=== PATIENT | male | born 1930 | race Caucasian/White ===

== ENCOUNTER 2017-10-03 10:21 | Emergency (ER) | payer OTHER, MEDICAID ==
--- NOTE | 2017-10-03 10:56 | CPEKG ---
Heart Rate: 84 RR Interval: 714 P-R Interval: 240 QRSD Interval: 108 QT Interval: 392 QTC Interval: 464 P [place]: 44 QRS [place]: -76 T Wave [place]: 54 EKG Severity - ABNORMAL ECG - EKG Impression: SINUS RHYTHM EKG Impression: FIRST DEGREE AV BLOCK EKG Impression: LEFT ANTERIOR FASCICULAR BLOCK Electronically Signed By: Brandy Vázquez 03-Oct-2017 20:04:28
[2017-10-03 11:29] LABS: % IMMATURE GRANULYOCYTES 0.4 % (0.0-1.1); ABSOLUTE IMMATURE GRANULOCYTES 0.02 10^3/uL (0.00-0.10); ADD DIFF? NO; ADD MORPH? NO; ADD SCAN? NO; ATYPICAL LYMPHOCYTE FLAG 0 (0-99); FRAGMENT RBC FLAG 0 (0-99); HEMATOCRIT 38.1 % (40.0-51.0); HEMOGLOBIN 13.7 g/dL (13.7-17.5); LEFT SHIFT FLG 0 (0-99); LIPEMIA HEMOLYSIS FLAG 90 (0-99); MEAN CELL HEMOGLOBIN 33.2 pg (27.9-34.1); MEAN CELL VOLUME 92.3 fL (81.5-99.8); MEAN PLATELET VOLUME 11.1 fL (8.7-11.7); PLATELET CLUMPS FLAG 0 (0-99); PLATELET COUNT 192 10^3/uL (150-400); RED BLOOD CELL COUNT 4.13 10^6/uL (4.40-6.38); RED CELL DISTRIBUTION WIDTH 12.7 % (11.5-15.2)
[2017-10-03 11:34] LABS: ANION GAP 13 mEq/L (8-16); CALCIUM 9.4 mg/dL (8.5-10.4); CARBON DIOXIDE 24 mEq/l (22-31); CHLORIDE 104 mEq/L (97-110); GLOMERULAR FILTRATION RATE > 60; GLUCOSE 96 mg/dL (70-100); POTASSIUM 3.8 mEq/L (3.5-5.2); SODIUM 141 mEq/L (134-144)
[2017-10-03 11:49] LABS: TROPONIN I < 0.012 ng/mL (0.000-0.034)
[2017-10-03 12:37] VITALS: RESP 18; TEMP 98.4
--- NOTE | 2017-10-03 12:56 | EDPHY ---
H & P Time Seen by Provider: 10/03/17 12:24 HPI/ROS: CHIEF COMPLAINT: High blood pressure HISTORY OF PRESENT ILLNESS: Patient is an 87-year-old male with a history of hypertension and coronary artery disease with 2 stents who presents to the emergency department with fluctuating blood pressure. Patient states that sometimes his systolic pressure is 110, and sometimes it he bounces up to 180. The patient states he was concerned because of the wide range of blood pressures. He has no chest pain or shortness of breath. He states when his blood pressure goes very high he sometimes feels foggy. He has no headache or focal deficits at this time. No nausea or vomiting. REVIEW OF SYSTEMS: My complete review of systems is negative except as mentioned in the HPI. Past Medical/Surgical History: Includes ACS, hypertension, prostate cancer, coronary artery disease Past surgical history: Includes 2 stents Social history: The patient does not smoke. Smoking Status: Never smoked Physical Exam: Vitals noted. In triage 171/84. When I saw the patient 132/76. GENERAL: Well-appearing, in no acute distress, alert. HEENT: Eyes normal to inspection, normal pharynx, no signs of dehydration. NECK: No thyromegaly, no lymphadenopathy, supple. RESPIRATORY: Clear to auscultation bilaterally, no rales, rhonchi or wheezing. CVS: Regular rate and rhythm, no rubs, murmurs, or gallops. ABDOMEN: Soft, nontender, nondistended, no organomegaly. BACK: Normal to inspection, no CVA tenderness. SKIN: Normal color, no rash, warm, dry. No pallor. EXTREMITIES: No pedal edema, no calf tenderness, no Homans sign or cords, no joint swelling. NEURO/PSYCH: Alert and oriented x3, normal mood and affect, normal motor sensory exam. No obvious cranial nerve deficit. Constitutional: Initial Vital Signs Temperature (C) 36.6 C 10/03/17 10:32 Heart Rate 81 10/03/17 10:32 Respiratory Rate 17 10/03/17 10:32 Blood Pressure 171/84 H 10/03/17 10:32 O2 Sat (%) 96 10/03/17 10:32 O2 Delivery Mode Room Air Allergies/Adverse Reactions: No Known Allergies Allergy (Unverified 05/18/13 05:42) Home Medications: Medication Instructions Recorded Aspirin [Aspirin 81mg (OTC)] 81 mg PO DAILY 05/18/13 Atorvastatin Calcium [Lipitor 20 20 mg PO DAILY 05/18/13 mg (RX)] Carvedilol 12.5 mg PO BID 05/18/13 Cholecalciferol Vit D3 [Vitamin D3 1,000 units PO DAILY 05/18/13 1000 units (OTC)] Diclofenac Sodium 1% [Voltaren Gel 1 earnest TP DAILY 05/18/13 (RX)] Hydrocodone Bit/Acetaminophen 1 each PO HS 05/18/13 [Hydrocodon-Acetaminophen 5-300] LORazepam [Ativan 1 mg (RX)] 1 mg PO TID 05/18/13 M D Recon 05/1805/18/13 Nitroglycerin [Nitrostat 0.4 mg 0.4 mg SL PRN PRN 05/18/13 (RX)] Olmesartan Medoxomil [Benicar 5 mg 10 mg PO DAILY 05/18/13 (RX)] [place]-3 Fatty Acids [Fish Oil 1000 1,000 mg PO DAILY 05/18/13 mg (OTC)] Pharmacy Completed 05/18/13 05/18/13 Medical Decision Making ED Course/Re-evaluation: In the emergency department I discussed possible etiologies with the patient. I answered all his questions. Laboratory studies were ordered from triage. The patient had a normal CBC and chemistry. Troponin was negative. My cell the patient had no complaints. I discussed his blood pressure medication. He has an appointment to see Dr. Tellez from Cardiology. I recommended he follow up with Dr. Tellez to see if his medications need to be adjusted. He will track his blood pressure and bring this to Dr. Tellez. He was given warnings prior to leaving. Differential Diagnosis: My differential includes but is not limited to hypertension, hypertensive emergency, hypertensive urgency, CVA, renal disease, ACS, acute CT - Data Points Laboratory Results: Laboratory Results 10/03/17 11:10 10/03/17 11:10 10/03/17 10/03/17 10/03/17 11:11 11:10 11:10 WBC 5.15 10^3/uL 10^3/uL (3.80-9.50) RBC 4.13 10^6/uL L 10^6/uL (4.40-6.38) Hgb 13.7 g/dL g/dL (13.7-17.5) Hct 38.1 % L % (40.0-51.0) MCV 92.3 fL fL (81.5-99.8) MCH 33.2 pg pg (27.9-34.1) MCHC 36.0 g/dL g/dL (32.4-36.7) RDW 12.7 % % (11.5-15.2) Plt Count 192 10^3/uL 10^3/uL (150-400) MPV 11.1 fL fL (8.7-11.7) Neut % (Auto) 54.7 % % (39.3-74.2) Lymph % (Auto) 28.7 % % (15.0-45.0) [place] % (Auto) 14.8 % H % (4.5-13.0) Eos % (Auto) 0.6 % % (0.6-7.6) Baso % (Auto) 0.8 % % (0.3-1.7) Nucleat RBC Rel Count 0.0 % % (0.0-0.2) Absolute Neuts (auto) 2.82 10^3/uL 10^3/uL (1.70-6.50) Absolute Lymphs (auto) 1.48 10^3/uL 10^3/uL (1.00-3.00) Absolute Monos (auto) 0.76 10^3/uL 10^3/uL (0.30-0.80) Absolute Eos (auto) 0.03 10^3/uL 10^3/uL (0.03-0.40) Absolute Basos (auto) 0.04 10^3/uL 10^3/uL (0.02-0.10) Absolute Nucleated RBC 0.00 10^3/uL 10^3/uL (0-0.01) Immature Gran % 0.4 % % (0.0-1.1) Immature Gran # 0.02 10^3/uL 10^3/uL (0.00-0.10) Sodium 141 mEq/L mEq/L (134-144) Potassium 3.8 mEq/L mEq/L (3.5-5.2) Chloride 104 mEq/L mEq/L (97-110) Carbon Dioxide 24 mEq/l mEq/l (22-31) Anion Gap 13 mEq/L mEq/L (8-16) BUN 17 mg/dL mg/dL (7-23) Creatinine 1.0 mg/dL mg/dL (0.7-1.3) Estimated GFR > 60 Glucose 96 mg/dL mg/dL (70-100) Calcium 9.4 mg/dL mg/dL (8.5-10.4) Troponin I < 0.012 ng/mL ng/mL (0.000-0.034) Prostate Specific Ag Pending Departure - Departure Disposition: Home, Routine, Self-Care Clinical Impression: Hypertension Qualifiers: Hypertension type: essential hypertension Qualified Code(s): I10 - Essential ( primary) hypertension Condition: Good Instructions: Hypertension (ED) Additional Instructions: Return with increasing headache, weakness, chest pain, shortness of breath or any other concerns. Referrals: NONE *PRIMARY CARE P,. [Primary Care Provider] - As per Instructions Onur Tellez MD [Medical Doctor] - 2-3 days without fail
[2017-10-03 13:22] VITALS: BP 136/78; PULSE 71; O2SAT 96
== END 2017-10-03 13:19 | disposition home or self-care (01) ==
DX: I10 Essential (primary) hypertension (principal); I25.10 Atherosclerotic heart disease of native coronary artery without angina pectoris; Z79.82 Long term (current) use of aspirin; Z85.46 Personal history of malignant neoplasm of prostate; Z95.5 Presence of coronary angioplasty implant and graft

== ENCOUNTER → 2017-12-19 | Outpatient (CLI) | payer OTHER, MEDICAID | LOC: FIMAGING 10:16 | PROVIDERS: ATTEND Internal Medicine Cardiovascular Disease | DX: I65.23 Occlusion and stenosis of bilateral carotid arteries (principal) ==

== ENCOUNTER 2018-01-24 07:59 | Emergency (ER) | payer OTHER, MEDICAID ==
[2018-01-24 08:07] VITALS: PULSE 67; TEMP 98.1
--- NOTE | 2018-01-24 08:43 | EDPHY ---
H & P Stated Complaint: pain behing left knee for one week, no trauma Time Seen by Provider: 01/24/18 08:09 HPI/ROS: CHIEF COMPLAINT: Left leg pain HISTORY OF PRESENT ILLNESS: The patient presents to the ED with a week history of left popliteal pain and swelling. The patient denies history of fall or trauma. Patient denies prior history of PE or DVT. The patient does report a history of prostate cancer and coronary artery disease. The patient has no history of fever, erythema, numbness or weakness. The patient reports pain that is worsened with movement. REVIEW OF SYSTEMS: A comprehensive 10 point review of systems is otherwise negative aside from elements mentioned in the history of present illness. Source: Patient Exam Limitations: No limitations - Personal History Current Tetanus/Diphtheria Vaccine: No Current Tetanus Diphtheria and Acellular Pertussis (TDAP): No - Medical/Surgical History Hx Asthma: No Hx Chronic Respiratory Disease: No Hx Diabetes: No Hx Cardiac Disease: Yes Hx Renal Disease: No Hx Cirrhosis: No Hx Alcoholism: No Hx HIV/AIDS: No Hx Splenectomy or Spleen Trauma: No Other PMH: HTN, prostate ca, PR with 2 stents - Social History Smoking Status: Never smoked - Physical Exam Exam: General Appearance: Alert, no distress Eyes: Pupils equal and round no pallor or injection ENT, Mouth: Mucous membranes moist Respiratory: There are no retractions, lungs are clear to auscultation Cardiovascular: Regular rate and rhythm Gastrointestinal: Abdomen is soft and nontender, no masses, bowel sounds normal Neurological: A&O, normal motor function, normal sensory exam, normal cranial nerves Skin: Popliteal tenderness and soft tissue swelling noted left leg, multiple superficial varicosities noted to the left lower extremity Musculoskeletal: Neck is supple nontender Extremities: Palpable dorsalis pedis and posterior tibial pulses bilaterally. Constitutional: Initial Vital Signs Temperature (C) 36.7 C 01/24/18 08:04 Heart Rate 67 01/24/18 08:04 Respiratory Rate 20 01/24/18 08:04 Blood Pressure 154/81 H 01/24/18 08:04 O2 Sat (%) 96 01/24/18 08:04 O2 Delivery Mode Room Air Allergies/Adverse Reactions: No Known Allergies Allergy (Verified 01/24/18 08:02) Home Medications: Medication Instructions Recorded Aspirin [Aspirin 81mg (OTC)] 81 mg PO DAILY 07/02/13 Atorvastatin Calcium [Lipitor 20 20 mg PO DAILY 05/18/13 mg (RX)] Carvedilol 12.5 mg PO BID 05/18/13 LORazepam [Ativan 1 mg (RX)] 1 mg PO TID 05/18/13 Benicar 01/24/18 Ibuprofen [Motrin (*)] 600 mg PO TID PRN #30 tab 01/24/18 Medical Decision Making - Diagnostics Imaging Results: Imaging Impressions Extremity Venous Study 01/24/18 08:41 Impression: 1. Focal thrombus involving short segment of one of the 2 peroneal veins in the proximal right calf. No additional evidence of deep venous thrombosis both lower extremities. Findings discussed with Jeremiah Mobley at 9:44 hour, 01/24/2018. ED Course/Re-evaluation: The patient presents to the ED for evaluation of left leg pain which is primarily in his knee. The patient has no history of trauma. He has some crepitance noted on exam. The patient was noted to have normal vascular exam bilaterally. The patient did have an ultrasound of his legs which demonstrated a small segment of clot in the right leg below the knee in a single vein. Regarding the patient's knee pain I suspect it is arthritis. I will advise that he began nonsteroidal anti-inflammatory medications. Regarding his short segment calf thrombosis I would like him to follow up with his primary care provider Dr. Graham this week to discuss the benefits of anticoagulation. I did contact the on-call physician for Dr. Graham, Dr. Pittman , who has sent a message to Dr. Graham regarding this issue. The patient will also be given the contact number of our on-call orthopedic surgeon Dr. Everett Nascimento. Differential Diagnosis: Differential diagnosis considered includes DVT, septic arthritis, cellulitis, osteoarthritis, myofascial strain - Data Points Laboratory Results: Laboratory Results 01/24/18 08:45 01/24/18 08:45 01/24/18 01/24/18 08:45 08:45 WBC 6.11 10^3/uL 10^3/uL (3.80-9.50) RBC 4.13 10^6/uL L 10^6/uL (4.40-6.38) Hgb 13.3 g/dL L g/dL (13.7-17.5) Hct 38.2 % L % (40.0-51.0) MCV 92.5 fL fL (81.5-99.8) MCH 32.2 pg pg (27.9-34.1) MCHC 34.8 g/dL g/dL (32.4-36.7) RDW 12.8 % % (11.5-15.2) Plt Count 148 10^3/uL L 10^3/uL (150-400) MPV 11.1 fL fL (8.7-11.7) Neut % (Auto) 61.0 % % (39.3-74.2) Lymph % (Auto) 25.2 % % (15.0-45.0) [place] % (Auto) 12.1 % % (4.5-13.0) Eos % (Auto) 0.8 % % (0.6-7.6) Baso % (Auto) 0.7 % % (0.3-1.7) Nucleat RBC Rel Count 0.0 % % (0.0-0.2) Absolute Neuts (auto) 3.73 10^3/uL 10^3/uL (1.70-6.50) Absolute Lymphs (auto) 1.54 10^3/uL 10^3/uL (1.00-3.00) Absolute Monos (auto) 0.74 10^3/uL 10^3/uL (0.30-0.80) Absolute Eos (auto) 0.05 10^3/uL 10^3/uL (0.03-0.40) Absolute Basos (auto) 0.04 10^3/uL 10^3/uL (0.02-0.10) Absolute Nucleated RBC 0.00 10^3/uL 10^3/uL (0-0.01) Immature Gran % 0.2 % % (0.0-1.1) Immature Gran # 0.01 10^3/uL 10^3/uL (0.00-0.10) Sodium 142 mEq/L mEq/L (135-145) Potassium 4.2 mEq/L mEq/L (3.5-5.2) Chloride 108 mEq/L mEq/L (97-110) Carbon Dioxide 23 mEq/l mEq/l (22-31) Anion Gap 11 mEq/L mEq/L (8-16) BUN 22 mg/dL mg/dL (7-23) Creatinine 0.9 mg/dL mg/dL (0.7-1.3) Estimated GFR > 60 Glucose 93 mg/dL mg/dL (70-100) Calcium 8.5 mg/dL mg/dL (8.5-10.4) Prostate Specific Ag 2.030 ng/mL ng/mL (0.000-4.000) Departure - Departure Disposition: Home, Routine, Self-Care Clinical Impression: Knee pain, acute Qualifiers: Laterality: left Qualified Code(s): M25.562 - Pain in left knee DVT (deep venous thrombosis) Qualifiers: Laterality: right Condition: Good Instructions: Knee Pain (ED) Additional Instructions: 1. Take Ibuprofen or Motrin 600 mg by mouth three times a day. 2. Please follow up with Dr. Everett Nascimento the orthopedic surgeon you have been referred to for further evaluation of your knee pain. 3. Please follow up with Dr. Edna Graham and Dr. Kelvin Krishnamurthy. Please have them review your ultrasound study performed in the emergency department to discuss possible treatment of a small blood clot noted. Referrals: Edna Graham MD [Primary Care Provider] - As per Instructions Everett Nascimento MD [Medical Doctor] - As per Instructions Prescriptions: Ibuprofen [Motrin (*)] 600 mg PO TID PRN #30 tab PRN Reason: for pain
[2018-01-24 08:54] LABS: PLATELET COUNT 148 10^3/uL (150-400)
[2018-01-24 10:25] VITALS: BP 179/87; RESP 16; O2SAT 95
== END 2018-01-24 10:55 | disposition home or self-care (01) ==
DX: M25.562 Pain in left knee (principal); I82.401 Acute embolism and thrombosis of unspecified deep veins of right lower extremity; I10 Essential (primary) hypertension; I25.2 Old myocardial infarction; Z79.82 Long term (current) use of aspirin; Z85.46 Personal history of malignant neoplasm of prostate; Z95.5 Presence of coronary angioplasty implant and graft

== ENCOUNTER → 2018-03-23 | Outpatient (CLI) | payer OTHER, MEDICAID | LOC: FIMAGING 15:20 | PROVIDERS: ATTEND Internal Medicine Hematology & Oncology | DX: M25.562 Pain in left knee (principal); I70.202 Unspecified atherosclerosis of native arteries of extremities, left leg ==

== ENCOUNTER 2018-05-25 12:52 | Emergency (ER) | payer OTHER, MEDICAID ==
--- NOTE | 2018-05-25 13:43 | EDPHY ---
H & P Time Seen by Provider: 05/25/18 13:23 HPI/ROS: CHIEF COMPLAINT: High blood pressure HISTORY OF PRESENT ILLNESS: Patient is an 88-year-old male with a history of hypertension who presents emergency department with elevated blood pressure. Patient states that today his systolic blood pressure has been between 170s and 190s. Patient took 2 doses of his Coreg and 1 dose of Benicar. Patient has no chest pain or shortness of breath. No headache. No focal weakness or numbness. Patient is also concerned with bruising on the right lateral aspect of his knee/fibula. He stated the bruising occurred spontaneously. No significant pain. Patient is able to walk without difficulty. REVIEW OF SYSTEMS: My complete review of systems is negative except as mentioned in the HPI. Past Medical/Surgical History: Includes hypertension, prostate cancer, coronary artery disease with UT Past surgical history: Includes stent placement Social history: Patient is Smoking Status: Never smoked Physical Exam: 36.3, 180/91, 69, 16, 96% on room air. Repeat systolic blood pressure was 160 GENERAL: Well-appearing, in no acute distress, alert. HEENT: Eyes normal to inspection, normal pharynx, no signs of dehydration. NECK: [No thyromegaly, no lymphadenopathy, supple. RESPIRATORY: Clear to auscultation bilaterally, no rales, rhonchi or wheezing. CVS: Regular rate and rhythm, no rubs, murmurs, or gallops. ABDOMEN: Soft, nontender, nondistended, no organomegaly. BACK: Normal to inspection, no CVA tenderness. SKIN: Normal color, no rash, warm, dry. No pallor. EXTREMITIES: No pedal edema, no calf tenderness, no Homans sign or cords, no joint swelling. The patient has old bruising on the right superior aspect of his fibula. There is no fibular tenderness. NEURO/PSYCH: Higher functions: Alert and Oriented x3. Normal speech and cognition. Normal mood and affect. Cranial nerves: Normal as tested. Cerebellar: Normal as tested. Good finger to nose, good [id number], normal gait. Peripheral exam: Normal motor exam. Normal sensation. Normal reflexes. Constitutional: Initial Vital Signs Temperature (C) 36.3 C 05/25/18 12:59 Heart Rate 69 05/25/18 12:59 Respiratory Rate 16 05/25/18 12:59 Blood Pressure 180/91 H 05/25/18 12:59 O2 Sat (%) 96 05/25/18 12:59 O2 Delivery Mode Room Air Allergies/Adverse Reactions: No Known Allergies Allergy (Verified 05/25/18 12:57) Home Medications: Medication Instructions Recorded Aspirin [Aspirin 81mg (OTC)] 81 mg PO DAILY 05/18/13 Atorvastatin Calcium [Lipitor 20 20 mg PO DAILY 05/18/13 mg (RX)] Carvedilol 12.5 mg PO BID 05/18/13 LORazepam [Ativan 1 mg (RX)] 1 mg PO TID 05/18/13 Benicar 01/24/18 Ibuprofen [Motrin (*)] 600 mg PO TID PRN #30 tab 01/24/18 Coreg 05/25/18 Olmesartan Medoxomil [Benicar 20 40 mg PO DAILY 20 Days tab 05/25/18 mg (*)] Medical Decision Making - Diagnostics Imaging Results: Imaging Impressions Extremity Venous Study 05/25/18 13:38 Impression: 1. No deep venous thrombosis in the right lower extremity. 2. Soft tissue contusion posterior lateral aspect of the right knee. Findings discussed with Brandy Vázquez M.D. at 14:26 hour, 05/25/2018. ED Course/Re-evaluation: In the emergency department I discussed possible etiologies with the patient. I answered all his questions. He was concerned the bruising was related to his blood pressure. Patient was noted to have a superficial clot previously in the right lower extremity. Because of this ultrasound was ordered. Laboratory studies and EKG were ordered. The patient has no tenderness palpation over the bruising. He is able to ambulate without difficulty. There is no fibular tenderness. I do not feel he needs x-ray imaging. He recently had an x-ray of his fibula. I doubt acute fracture. Sinus rhythm at 68. Left anterior fascicular block. Multiple atrial premature complexes. Ultrasound: Please refer the dictated report by the radiologist. No acute disease noted. I discussed the case with Dr. Edna Graham. The she recommended the patient increase Benicar to 40 mg and she will see the patient this week. Differential Diagnosis: My differential includes but is not limited to DVT, bruising, ligamentous strain , stress fracture, fracture, hypertensive urgency, hypertensive crisis, ACS, acute [place], thrombocytopenia - Data Points Laboratory Results: Laboratory Results 05/25/18 13:29 05/25/18 13:29 05/25/1818 05/25/18 13:29 13:29 13:29 WBC 7.07 10^3/uL 10^3/uL (3.80-9.50) RBC 4.30 10^6/uL L 10^6/uL (4.40-6.38) Hgb 13.9 g/dL g/dL (13.7-17.5) Hct 40.5 % % (40.0-51.0) MCV 94.2 fL fL (81.5-99.8) MCH 32.3 pg pg (27.9-34.1) MCHC 34.3 g/dL g/dL (32.4-36.7) RDW 12.8 % % (11.5-15.2) Plt Count 169 10^3/uL 10^3/uL (150-400) MPV 11.4 fL fL (8.7-11.7) Neut % (Auto) 59.9 % % (39.3-74.2) Lymph % (Auto) 26.7 % % (15.0-45.0) [place] % (Auto) 11.9 % % (4.5-13.0) Eos % (Auto) 0.7 % % (0.6-7.6) Baso % (Auto) 0.7 % % (0.3-1.7) Nucleat RBC Rel Count 0.0 % % (0.0-0.2) Absolute Neuts (auto) 4.23 10^3/uL 10^3/uL (1.70-6.50) Absolute Lymphs (auto) 1.89 10^3/uL 10^3/uL (1.00-3.00) Absolute Monos (auto) 0.84 10^3/uL H 10^3/uL (0.30-0.80) Absolute Eos (auto) 0.05 10^3/uL 10^3/uL (0.03-0.40) Absolute Basos (auto) 0.05 10^3/uL 10^3/uL (0.02-0.10) Absolute Nucleated RBC 0.00 10^3/uL 10^3/uL (0-0.01) Immature Gran % 0.1 % % (0.0-1.1) Immature Gran # 0.01 10^3/uL 10^3/uL (0.00-0.10) PT 15.4 SEC H SEC (12.0-15.0) INR 1.20 H (0.83-1.16) APTT 30.9 SEC SEC (23.0-38.0) Sodium 138 mEq/L mEq/L (135-145) Potassium 4.4 mEq/L mEq/L (3.3-5.0) Chloride 103 mEq/L mEq/L (97-110) Carbon Dioxide 25 mEq/l mEq/l (22-31) Anion Gap 10 mEq/L mEq/L (8-16) BUN 22 mg/dL mg/dL (7-23) Creatinine 1.1 mg/dL mg/dL (0.7-1.3) Estimated GFR > 60 Glucose 98 mg/dL mg/dL (70-100) Calcium 9.7 mg/dL mg/dL (8.5-10.4) Departure - Departure Disposition: Home, Routine, Self-Care Clinical Impression: Hypertension Qualifiers: Hypertension type: unspecified Qualified Code(s): I10 - Essential (primary) hypertension Condition: Good Instructions: Hypertension (ED) Additional Instructions: Increase your Benicar to [address] Edna Graham is office to make an appointment for this week. Return with increasing blood pressure, headache, chest pain, shortness of breath or any other concerns. Referrals: Edna Graham MD [Primary Care Provider] - 2-3 days, call for appt. Prescriptions: Olmesartan Medoxomil [Benicar 20 mg (*)] 40 mg PO DAILY 20 Days tab
[2018-05-25 13:58] LABS: PLATELET COUNT 169 10^3/uL (150-400)
--- NOTE | 2018-05-25 14:17 | CPEKG ---
Heart Rate: 68 RR Interval: 882 P-R Interval: 216 QRSD Interval: 108 QT Interval: 428 QTC Interval: 456 P [place]: 23 QRS [place]: -65 T Wave [place]: 29 EKG Severity - ABNORMAL ECG - EKG Impression: SINUS RHYTHM EKG Impression: MULTIPLE ATRIAL PREMATURE COMPLEXES EKG Impression: LEFT ANTERIOR FASCICULAR BLOCK EKG Impression: BORDERLINE R WAVE PROGRESSION, ANTERIOR LEADS Electronically Signed By: Ethan Henriquez 28-May-2018 21:37:17
[2018-05-25 14:26] LABS: INR 1.2 (0.83-1.16); PROTIME(PATIENT) 15.4 SEC (12.0-15.0)
[2018-05-25 15:12] VITALS: BP 158/86
== END 2018-05-25 15:11 | disposition home or self-care (01) ==
DX: I10 Essential (primary) hypertension (principal); I25.10 Atherosclerotic heart disease of native coronary artery without angina pectoris; I25.2 Old myocardial infarction; Z79.82 Long term (current) use of aspirin; Z85.46 Personal history of malignant neoplasm of prostate; Z95.5 Presence of coronary angioplasty implant and graft

== ENCOUNTER → 2018-08-17 | Outpatient (CLI) | payer OTHER, MEDICAID | LOC: FIMAGING 13:33 | PROVIDERS: ATTEND Internal Medicine Cardiovascular Disease | DX: I70.0 Atherosclerosis of aorta (principal); I70.8 Atherosclerosis of other arteries; I25.10 Atherosclerotic heart disease of native coronary artery without angina pectoris ==

== ENCOUNTER 2019-01-13 18:43 | Emergency (ER) | payer OTHER, MEDICAID ==
--- NOTE | 2019-01-13 19:25 | EDPHY ---
H & P Time Seen by Provider: 01/13/19 18:58 HPI/ROS: HPI Concerned about elevated blood pressure. 88-year-old male by private vehicle with his and daughter. The patient has a history of hypertension. He is currently taking Coreg and Benicar for this. His primary care physician is Dr. Edna Graham. He presents to the emergency department with complaint of elevated blood pressure but no other associated signs or symptoms. He states that his blood pressure has been running high over the last couple of days and previous to this the last few days it has been up and down. He takes Benicar once daily and Coreg twice daily. He has not had a 2nd dose of Coreg today. He denies any shortness of breath. No headache. No changes in vision. No shortness of breath. ROS: Constitutional: No fever, no chills. He does have chronic fatigue. Eyes: No discharge. No changes in visionENT: No sore throat. No nasal congestion or rhinorrhea. Respiratory: No cough. No shortness of breath. Cardiac: No chest pain, no palpitations. Gastrointestinal: No abdominal pain, no vomiting, no diarrhea. Genitourinary: No hematuria. No dysuria or increased frequency with urination. Musculoskeletal: No back pain. No neck pain. No myalgias or arthralgias. Neurological: No headache. No focal weakness or altered sensation. Past medical history: Hypertension, peripheral vascular disease, SD with 2 stents, prostate cancer. Social history: Nonsmoker. Here with his and his daughter. Physical Exam: General Appearance: Alert, no distress. This patient is responding to questions appropriately and in full sentences. This patient appears well- hydrated and well-nourished. Eyes: Pupils equal and round no pallor or injection. No lid edema, erythema or injection. Respiratory: There are no retractions, lungs are clear to auscultation with good air movement bilaterally. Cardiovascular: Regular rate and rhythm. No murmur appreciated. Gastrointestinal: Abdomen is soft and nontender, no masses, bowel sounds normal. No focal tenderness at McBurney's point. No Meza sign. Neurological: Motor sensory function is grossly intact. Cranial nerves are normal. Gait is normal/baseline. Skin: Warm and dry, no rashes. Musculoskeletal: Neck is supple and nontender. Extremities are symmetrical. All joints range without pain or impingement. Psychiatric: No agitation. No depression. Database: EKG: EKG time is 7:06 p.m.; EKG shows a narrow complex normal sinus rhythm with a ventricular rate of 65. Borderline first-degree block, the QRS, QT intervals are within normal limits. There are no ST-T wave changes indicative of ischemic or injury pattern. No evidence of right heart strain. This EKG was compared to a prior EKG and did not show any significant changes. Interpreted by me. Imaging: Procedures: Emergency department course: Triage vital signs reviewed. The patient's blood pressure is 169/79. Vital signs are otherwise unremarkable. He has a nonfocal neurologic exam. He has no complaint of chest pain or shortness of breath. His presentation is not consistent with hypertensive emergency. EKG obtained and reviewed by myself. I discussed the results of this EKG with the patient and family. Explained that he was to continue taking his blood pressure medication as prescribed. I explained he was to follow up with his primary care physician Dr. Edna Graham in the next 1-2 days for re-evaluation and adjustment of his antihypertensive medications as needed. He and his family are in agreement with this plan. Return to emergency department precautions were discussed with them. They do feel comfortable taking him home. All of their questions were answered. The patient was discharged from the emergency department in good condition with family. Differential Diagnosis: The differential diagnosis on this patient includes but is not limited to uncontrolled hypertension. Hypertensive emergency unlikely. This represents a partial list of diagnoses considered. These considerations are based on history , physical exam, past history, reassessment and diagnostic testing. Smoking Status: Never smoked Constitutional: Initial Vital Signs Temperature (C) 36.5 C 01/13/19 18:56 Heart Rate 68 01/13/19 18:56 Respiratory Rate 16 01/13/19 18:56 Blood Pressure 169/79 H 01/13/19 18:56 O2 Sat (%) 94 01/13/19 18:56 O2 Delivery Mode Room Air Allergies/Adverse Reactions: No Known Allergies Allergy (Verified 01/13/19 18:56) Home Medications: Medication Instructions Recorded Aspirin [Aspirin 81mg (OTC)] 81 mg PO DAILY 05/18/13 Atorvastatin Calcium [Lipitor 20 20 mg PO DAILY 05/18/13 mg (RX)] Carvedilol 12.5 mg PO BID 05/18/13 LORazepam [Ativan 1 mg (RX)] 1 mg PO TID 05/18/13 Benicar 01/24/18 Ibuprofen [Motrin (*)] 600 mg PO TID PRN #30 tab 01/24/18 Coreg 05/25/18 Olmesartan Medoxomil [Benicar 20 40 mg PO DAILY 20 Days tab 05/25/18 mg (*)] Departure - Departure Disposition: Home, Routine, Self-Care Clinical Impression: Hypertension Condition: Good Instructions: Hypertension (ED) Additional Instructions: Read and follow provided instructions. Follow-up with your primary care physician, Dr. Edna Graham, in the next 1-2 days for re-evaluation as discussed. Call her office tomorrow morning for appointment time. She will adjust her blood pressure medications as needed. Take your blood pressure medications as prescribed only. Return to the emergency department for worsening chest pain, shortness of breath , changes in vision or other serious concerns. Referrals: Edna Graham MD [Primary Care Provider] - As per Instructions
[2019-01-13 19:44] VITALS: BP 153/72
--- NOTE | 2019-01-14 22:40 | CPEKG ---
Test Reason : OPEN Blood Pressure : / mmHG Vent. Rate : 065 BPM Atrial Rate : 066 BPM P-R Int : 223 ms QRS Dur : 114 ms QT Int : 419 ms P-R-T Axes : -09 -69 058 degrees QTc Int : 436 ms Sinus rhythm Prolonged NV interval Left anterior fascicular block Confirmed by Jojo Slater ([id number]) on 01/14/2019 10:39:37 PM Referred By: Jojo Slater Confirmed By:Jojo Slater
== END 2019-01-13 19:43 | disposition home or self-care (01) ==
DX: I10 Essential (primary) hypertension (principal); I73.9 Peripheral vascular disease, unspecified; I25.2 Old myocardial infarction; Z95.5 Presence of coronary angioplasty implant and graft; Z79.899 Other long term (current) drug therapy